=== PATIENT | male | born 1970 | race Caucasian/White ===

== ENCOUNTER 2020-12-08 09:53 | Outpatient (CLI) | payer BC, SELFPAY ==
[2020-12-09 13:58] LABS: COVID-19 RT-PCR UVMMC Result Positive (Negative)
== END 2020-12-08 09:54 | disposition home or self-care (01) ==
PROVIDERS: PCP Emergency Medicine; Visit Provider Emergency Medicine
DX: Z20.822 Contact with and (suspected) exposure to COVID-19 (principal)
CPT/HCPCS: U0003

== ENCOUNTER 2023-11-14 06:03 | Day surgery (SDC) | payer BC, SELFPAY ==
--- NOTE | 2023-11-13 12:34 | PDOC.DSDIS_ITS ---
Date of service: 11/14/23 Time of Service: 08:10 Discharge Plan Disposition Patient Disposition: Home Condition: Good Discharge Details Attending Provider: Humaira Leal Primary Care Provider: Dheeraj Leal Home Meds and New Rx's Prescriptions: Continued metoprolol tartrate 50 mg tablet 50 mg PO DAILY Qty: 90 4RF Discontinued bisacodyl [Dulcolax (bisacodyl)] 5 mg tablet,delayed release (DR/EC) 5 mg PO ONCE Qty: 4 0RF Rx Instructions: Take per colonoscopy instructions provided by ordering providers office polyethylene glycol 3350 17 gram/dose powder 17 g PO ONCE Qty: 238 0RF Rx Instructions: Take per colonoscopy instructions provided by ordering providers office Discharge Instructions Additional Instructions: DSU Colonoscopy Post- Op Instructions Instructions for Everyone who is given Anesthesia: For your safety, please do the following for the next twenty-four (24) hours: *Do Not operate a motor vehicle (car, truck, motorcycle, etc.) *Do Not drink alcoholic beverages or use any recreational drugs for the first 24 hours or while taking pain medications. The medications in your body may have a reaction that can be dangerous. *Do Not make any important decisions or sign any important papers. Findings: ext hemorrhoids- small diverticula-make sure you are moving your bowels on a regular basis and you are not straining to go to the bathroom. If you find you are having issues with constipation or straining, then it is recommended you start a fiber supplement such as Metamucil Follow up: We did remove 1 small polyp today. My office will send you a letter in 2 to 3 weeks time with the results of the pathology and when we want to repeat the colonoscopy. 1. No lifting over 20 pounds or strenuous activity for the first 24 hours after your procedure. After 24 hours there are no restrictions on your activity but you may feel fatigued for a few days. 2. After you arrive home you may have a light meal and return to your normal diet as you can tolerate it without feeling sick to your stomach. 3. You may have a bloated, gaseous feeling in your belly (abdomen) after a colonoscopy. Passing gas and belching will help. Walking or lying down on your left side with your knees flexed may relieve the discomfort. Call the office at [phone] (Office) or [phone] (Hospital) right away if you notice any of the following: a.Vomiting of blood or ?coffee ground stools?. b.Rectal bleeding 1Tbsp, blood clots or continuous bleeding. c.Severe belly (abdominal) pain. d.A hard distended belly (abdomen) and an inability to pass gas. 4. Please don?t expect to have a normal BM (bowel movement) for 2-3 days after your procedure. 5. If there are questions regarding the findings of your procedure, please contact your doctor 6. If you are unable to contact your doctor with a problem, contact the hospital at [phone]. 7. Continue all your regular medications unless directed otherwise. I understand the above instructions and have no questions. Signature of Patient or Adult Escort Name of Responsible Adult Escort Signature of Nurse Date/Time Activity:: see above Diet:: see above Discharge Orders Discharge Orders: Discharge Order (Routine); Ordered 11/14/23 Ordered By: Humaira Leal DS: Diagnosis Discharge Diagnosis (1) Essential hypertension: Status: Acute (2) Obesity: Status: Chronic (3) History of tobacco use: (4) Screening for malignant neoplasm of colon performed: Status: Acute Asessment and Plan: The patient is seen and examined after their colonoscopy.? The patient has been able to pass gas.? They are not having abdominal pain.? They have been able to tolerate liquids and a snack.? They do not have any nausea or vomiting.? They are not having any chest pain or shortness of breath.??? They are not having any rectal bleeding. Their vital signs have been stable-see nursing notes. We discussed findings during their colonoscopy, and any biopsies that were done/polyps that were removed. The patient will be sent a letter with any biopsy results, and when to repeat the colonoscopy.-see discharge instructions. Patient was given explicit instructions to follow-up regarding colonoscopy-refer to discharge instructions.? We reviewed resumption of medications. Patient verbalized understanding and discharged in stable and satisfactory condition- See nursing notes. (5) External hemorrhoid: Status: Acute (6) Diverticula of colon: Status: Acute
[2023-11-14 06:24] VITALS: BP 147/95; PULSE 67; RESP 18; TEMP 36.5; O2SAT 96
[2023-11-14] MEDS: Lactated Ringers 1,000 ML 80 ML IV (06:35)
--- NOTE | 2023-11-14 07:01 | ANES.PREOP_ITS ---
General Info Date of Service Date Performed: 11/14/23 Height: 6 ft 1 in Weight: 165.9 kg Body Mass Index (BMI): 48.2 Surgical Procedure: Operation Date: 11/14/23 07:35 Proposed Procedure Side Surgeon claire Leal DO Meds Allergies and Home Medications Allergies Allergy/AdvReac Type Severity Reaction Status Date / Time No Known Allergies Allergy Verified 11/14/23 06:22 Home Medication Medication Instructions Recorded metoprolol tartrate 50 mg tablet 50 mg PO DAILY #90 tab-caps 07/12/23 Current Visit Medications: Current Medications Generic Name Dose Route Start Last Admin Trade Name Freq PRN Reason Stop Dose Admin Hyoscyamine Sulfate 0.125 mg 11/14/23 00:31 Hyoscyamine 0.125 Mg Sl/Oral/Chew SL 12/14/23 00:30 DIRECTED PRN Ringer's Solution 1,000 mls @ 80 mls/hr 11/14/23 06:00 11/14/23 06:35 IV 11/14/23 23:59 80 mls/hr INFUSION ETHAN Administration IV Miscellaneous Supplies 1 each 11/14/23 06:00 Iv Access IV 11/14/23 23:59 DIRECTED ETHAN Ondansetron HCl 4 mg 11/14/23 00:31 Ondansetron 4 Mg/2 Ml Vial IVP 12/14/23 00:30 Q4H PRN PRN Nausea / Vomiting Sodium Chloride 0 ml 11/14/23 06:00 Normal Saline Flush 10 Ml Syr IV 11/14/23 23:59 PRN PRN Sodium Chloride 0 ml 11/14/23 06:00 Normal Saline 10 Ml Vial IJ 11/14/23 23:59 DIRECTED PRN Sterile Water 0 ml 11/14/23 06:00 Water,Injection,Sterile 10 Ml Vial IJ 11/14/23 23:59 DIRECTED PRN PFSH Active Problems Active Problems: Problem Status Onset Code Screening for malignant neoplasm of colon performed Z12.11 Obesity E66.9 Essential hypertension I10 Medical History Medical History Kidney stone History of tobacco use Medical History Comments:: pt. states he woke up during wisdom teeth extracction Surgical History Surgical History [place] teeth extracted Tobacco Smoking/Tobacco Use Status: Former Tobacco Use Passive smoking exposure: Yes Second hand exposure: Yes Alcohol Alcohol Intake: current Alcohol intake frequency: a few times a week Alcohol type: hard liquor Substance Use Substance use: Never Substance use type: does not use Details: alcohol:t-3 Vital Signs and Lab Results Vital Signs Most Recent Vital Signs in EMR: Most Recent Vital Signs Temp Pulse Resp BP Pulse Ox 36.5 C 67 18 147/95 H 96 11/14/23 06:24 11/14/23 06:24 11/14/23 06:24 11/14/23 06:24 11/14/23 06:24 Lab Results Blood Type / Crossmatch: No Data to Display Complete Blood Count: No Data to Display Complete Metabolic Panel: No Data to Display Liver Function Panel: No Data to Display Coagulation Panel: No Data to Display Cardiac Panel: No Data to Display Arterial Blood Gas: No Data to Display Venous Blood Gas: No Data to Display Pancreas Panel: No Data to Display Thyroid Panel: No Data to Display Infectious Disease: No Data to Display Blood Cultures: No Data to Display Toxicology Panel: No Data to Display Anesthesia Assessment and Plan Anesthesia History Personal History: No History of Anesthesia Complications Family History: No Family History of Anesthesia Complications Exercise Tolerance Exercise Tolerance: Metabolic Equivalents>4 Pertinent Negatives Pertinent Negatives: No Symptoms of GERD, No Major Cardiovascular Symptoms or Complaints, No Major Pulmonary Symptoms or Complaints and No History of CVA/TIA Cardiac & Pulmonary Exam Cardiac Exam: Normal S1/S2 Heart Sounds Pulmonary Exam: Clear Bilateral Breath Sounds Implantable Cardiac Device Does patient have a Pacemaker or an ICD?: No Airway Exam Known Difficult Airway: No Mallampati Class: 2 Mouth Opening: Normal (> 3cm) Thyromental Distance: Greater than 3 cm Neck Range of Motion: Full ROM Neck Circumference: Normal Teeth Condition: Removable Dentures/Plates Upper and Removable Dentures/Plates Lower (partials) ASA Classification ASA Score: ASA 3 Emergency Case?: No NPO Status NPO Status: NPO Clears >2 hours, Solids >8 hours Anesthesia Plan Resuscitation Status: Full Code Anesthesia Technique: General Anesthesia Airway Planned: Natural Airway Monitors Used: Standard Monitors
[2023-11-14 07:03] VITALS: BMI 48.2
--- NOTE | 2023-11-14 07:48 | BOWEL_PTH ---
PATIENT: Lexa Mancini LOC: [facility] U#:[id number] AGE/SX: 53/M ROOM: RE11/14/[address]: Humaira Leal : 1970 BED: DIS: 11/14/2023 SPEC #: [id number] RECD: 11/14/23 12:19 STATUS: JULIA RE #: [id number] IRMA: 11/14/23 07:[address]: Humaira Leal DEPT: Surgical Specimen RECD BY: Nany Ragland ENTERED: 11/14/23 12:26 SP TYPE: Bowel OTHR DR: Dheeraj Leal, CORE FILER Tissues: 1 - BIOPSY BOWEL Procedures: GROSS AND MICRO LEVEL 4 Comments: [id number]
[2023-11-14 07:59] VITALS: BP 125/77; PULSE 64; RESP 18; TEMP 36.3; O2SAT 96
--- NOTE | 2023-11-14 08:06 | W.COLOREPORT ---
Date of service: 11/14/23 Time of Service: 08:06 Colonoscopy Report Date of procedure: 11/14/23 Pre-op diagnosis general: screening Post-op diagnosis procedure note: other (ext hem/polyps/moderate diverticula ) Surgeon: Humaira Leal Anesthesia Type: General:No Airway Estimated blood loss (mL): 1 Pathology: other Complications: None Disposition: same day Prep: Miralax/Dulcolax Retraction Time: 19 Procedure Description: After informed consent was obtained the patient was taken to the procedure room and placed in a left decubitous position. Monitors were applied and a time out was done. The patients name, date of , procedure, allergies to medications and metal in their body was reviewed. The patient was then sedated. Once sedated and comfortable a rectal exam was done. External exam shows external hemorrhoids with no signs of thrombosis or inflammation. Internal exam revealed a normal sphincter tone and no palpable masses. The prostate-not palpable The scope was then introduced and retrofelexed. No internal hemorrhoids were identified. The scope was then advanced to the cecum without difficulty. The TI and appendiceal orifice were identified. The scope was then slowly retracted over 19 minutes back into the rectum. He has a flat 0.5 cm polyp at 70 cm that is removed with a cold biopsy forcep. He has moderate diverticuli that do extend all the way over to the hepatic flexure. They are moderate in size and number. There is no signs of active bleeding or infection. There are no AVMs noted. The mucosa is pink and healthy with a normal vascular pattern the scope was removed and the patient was woken up and taken back to Same day surgery in stable condition. The patient tolerated the procedure well and there were no immediate complications. Follow up: The patient should follow up in 7-10, path pending, years unless they develop changes in bowel habits or other new gastrointestinal complaints. Stuyvesant Bowel Prep Stuyvesant Bowel Prep Right Colon: 2 Left Colon: 2 Transverse Colon: 2 Total Score: 6
--- NOTE | 2023-11-14 08:09 | W.ANESPOSTOP ---
Postoperative Evaluation Date, Time and Location Date Performed: 11/14/23 Time Performed: 08:09 Patient Location: Day Surgery Unit Vital Signs Most Recent Imported Vital Signs: Most Recent Vital Signs Temp Pulse Resp BP Pulse Ox 36.3 C L 64 18 125/77 96 11/14/23 07:59 11/14/23 07:59 11/14/23 07:59 11/14/23 07:59 11/14/23 07:59 Pain Score Most Recent Pain Score: Most Recent Pain Score Pain Level 0 11/14/23 07:59 Assessment Mental Status: Awake (Alert & Oriented to Patient Baseline) Airway and Respiratory Function: Patent airway with normal (patient baseline) respiratory exam Cardiovascular Function: Hemodynamically Stable Hydration Status: Adequately Hydrated Nausea & Vomiting: No Nausea or Vomiting Pain: Pt. Denies Any Pain Peripheral Nerve Block: Patient did not receive a nerve block
[2023-11-14 08:27] VITALS: BP 132/80; PULSE 64; RESP 18; TEMP 35.9; O2SAT 96
== END 2023-11-14 08:40 | disposition home or self-care (01) ==
LOC: SUR 06:03
PROVIDERS: PCP Nurse Practitioner Family; Visit Provider Surgery
PROC: 0DJD8ZZ Inspection of Lower Intestinal Tract, Via Natural or Artificial Opening Endoscopic (ICD-10-PCS; CPT 45378; principal; 2023-11-14 07:30)
DX: Z12.11 Encounter for screening for malignant neoplasm of colon (principal); K63.5 Polyp of colon; K64.4 Residual hemorrhoidal skin tags; K57.30 Diverticulosis of large intestine without perforation or abscess without bleeding
CPT/HCPCS: 45380; 88305; J2704

== ENCOUNTER 2024-03-14 07:59 | Outpatient (CLI) | payer BC, SELFPAY ==
[2024-03-14 12:26] LABS: MCH 30.3 pg (27.0-33.0); MCHC 33.3 % (32.0-36.0); MCV 91 fL (80-95); Platelet Count 200 10^3/uL (130-400); RBC 5.61 10^6/uL (4.36-5.78); RDW 14.2 % (11.8-14.1); RDW-SD 47.4 fL; WBC 6.84 10^3/uL (4.4-10.8)
[2024-03-14 12:50] LABS: Hemoglobin A1C 5.9 % (<5.7)
[2024-03-14 12:52] LABS: ALT 51 U/L (16-63); AST 25 U/L (15-37); Albumin 3.6 g/dL (3.4-5.0); Alkaline Phosphatase 101 U/L (46-116); Anion Gap 9.3 mmol/L (3-11); BUN 22 mg/dL (7-18); Bilirubin, Total 0.91 mg/dL (0.2-1.0); CO2 26.7 mmol/L (21.0-32.0); CREATININE 0.8 mg/dL (0.70-1.30); Calcium 8.8 mg/dL (8.5-10.1); Calculated LDL 146 mg/dL (<100); Chloride 104 mmol/L (98-107); Cholesterol 200 mg/dL (<200); Estimated GFR 107.15 (mL/min/1.73m2); Glucose 106 mg/dL (74-106); HDL Cholesterol 36 mg/dL (40-60); Potassium 4.4 mmol/L (3.5-5.1); Sodium 140 mmol/L (136-145); TSH (W/Ref FT4) 1.68 uIU/mL (0.36-3.74); Total Protein 7.5 g/dL (6.4-8.2); Triglyceride 90 mg/dL (<150)
[2024-03-14 18:32] LABS: HBs Antibody, Quant <3.1 mIU/mL (See Note); Hep B Surface Ab Negative (See Note); Hepatitis B Core Antibody Negative (Negative); Hepatitis B Surface Antigen Negative (Negative)
[2024-03-14 18:35] LABS: PSA, Screening 0.3 ng/mL (<=3.5)
[2024-03-14 18:45] LABS: Hepatitis C Ab w Rflx HCV PCR Negative (Negative)
[2024-03-14 18:56] LABS: HIV-1/2 Ag & Ab Screen Negative (Negative)
== END 2024-03-14 08:00 | disposition home or self-care (01) ==
PROVIDERS: PCP Nurse Practitioner Family; Referring Provider Nurse Practitioner Family; Visit Provider Nurse Practitioner Family
DX: Z00.00 Encounter for general adult medical examination without abnormal findings (principal); I10 Essential (primary) hypertension; E66.01 Morbid (severe) obesity due to excess calories; Z68.42 Body mass index [BMI] 45.0-49.9, adult; Z11.59 Encounter for screening for other viral diseases; Z11.4 Encounter for screening for human immunodeficiency virus [HIV]; Z12.5 Encounter for screening for malignant neoplasm of prostate
CPT/HCPCS: 36415; 80053; 80061; 84153; 85027; 86704; 86706; 86803; 87340; 87389; 83036; 84443

== ENCOUNTER 2025-05-08 10:09 | Outpatient (CLI) | payer BC, SELFPAY ==
[2025-05-08 12:52] LABS: HCT 49.9 % (40.0-50.0); HGB 16.7 g/dL (13.5-17.5); MCH 30.2 pg (27.0-33.0); MCHC 33.5 % (32.0-36.0); MCV 90 fL (80-95); MPV 9.8 fL (8.0-11.0); Platelet Count 232 10^3/uL (130-400); RBC 5.53 10^6/uL (4.36-5.78); RDW 13.3 % (11.8-14.1); RDW-SD 44.3 fL; WBC 6.92 10^3/uL (4.4-10.8)
[2025-05-08 13:27] LABS: Anion Gap 8.3 mmol/L (3-11); BUN 15 mg/dL (7-18); CO2 26.7 mmol/L (21.0-32.0); Calcium 8.5 mg/dL (8.5-10.1); Calculated LDL 128 mg/dL (<100); Chloride 106 mmol/L (98-107); Cholesterol 174 mg/dL (<200); Estimated GFR 116.15 (mL/min/1.73m2); Glucose 85 mg/dL (74-106); HDL Cholesterol 33 mg/dL (>or=40); Potassium 4.3 mmol/L (3.5-5.1); Sodium 141 mmol/L (136-145); Triglyceride 69 mg/dL (<150)
[2025-05-08 13:49] LABS: Hemoglobin A1C 5.4 % (<5.7)
[2025-05-08 19:27] LABS: PSA, Screening 0.3 ng/mL (<=3.5)
== END 2025-05-08 10:10 | disposition home or self-care (01) ==
LOC: LOS 10:09
PROVIDERS: PCP Nurse Practitioner Family; Visit Provider Nurse Practitioner Family
DX: R73.03 Prediabetes (principal); E78.5 Hyperlipidemia, unspecified; Z12.5 Encounter for screening for malignant neoplasm of prostate
CPT/HCPCS: 36415; 80048; 80061; 84153; 85027; 83036